=== PATIENT | female | born 1955 | race African-American/Black ===

== ENCOUNTER 2019-03-10 16:26 | Inpatient (IN) | payer OTHER, MEDICAID ==
[~2019-03-10] VITALS: Ht 177.8 cm; Wt 95.3 kg
--- NOTE | 2019-03-10 16:57 | NUR ---
[facility] From [facility] Abdominal Pain x2wks - cramps worse today." BS300. PAIN IS 10/10 AND SHARP/STABBING. DENIES CHANGES IN BOWEL/BLADDER HABITS. ALSO C/O PAIN IN LEFT GREAT TOE R/T DIABETIC WOUND, WHICH IS DRY AND CRUSTED. AOX4, AMBULATORY WITH CANE, VSS, RR EVEN AND UNLABORED ON RA. ON MONITOR, MADE COMFORTABLE, AND READY FOR EVAL.
--- NOTE | 2019-03-10 17:35 | NUR ---
URINE SENT TO STAT LAB
[2019-03-10] MEDS ORDERED: ONDANSETRON HCL/PF 4 MG/2 ML VIAL IVP ONE (18:00)
[2019-03-10] MEDS ORDERED: IV NS 0.9% 1,000 ML BAG IV ONE (18:00)
[2019-03-10] MEDS ORDERED: ONDANSETRON HCL/PF 4 MG/2 ML VIAL ONE (18:03)
[2019-03-10 18:12] LABS: BASOPHILS % (AUTO) 0.3 % (0.0-2.0); EOSINOPHILS % (AUTO) 0.8 % (0.0-6.0); HEMATOCRIT 34 % (33-45); HEMOGLOBIN 11.4 g/dL (11.5-14.8); LYMPHOCYTES # (AUTO) 2.8 /CMM (0.8-4.8); LYMPHOCYTES % (AUTO) 37.5 % (20.0-44.0); MEAN CORPUSCULAR HGB CONC 33 g/dl (31.0-36.0); MEAN CORPUSCULAR VOLUME 85 fL (82-100); MONOCYTES # (AUTO) 0.5 /CMM (0.1-1.30); MONOCYTES % (AUTO) 6.8 % (2.0-12.0); NEUTROPHILS # (AUTO) 4.1 /CMM (1.8-8.9); NEUTROPHILS % (AUTO) 54.6 % (43.0-81.0); PLATELET COUNT (AUTO) 200 /CMM (150-450); WHITE BLOOD COUNT (AUTO) 7.5 K/uL (4.3-11.0)
--- NOTE | 2019-03-10 18:15 | NUR ---
IV ACCESS OBTAINED AND FLUIDS/MEDS GIVEN. WILL MONITOR ACCORDINGLY
[2019-03-10 18:19] LABS: CALCIUM, SERUM 9.8 mg/dL (8.5-10.1); CARBON DIOXIDE 24 mmol/L (21-32); CHLORIDE 102 mmol/L (98-107); CREATININE 1.2 mg/dL (0.6-1.3); GLUCOSE 314 mg/dL (74-106); SODIUM SERUM 137 mmol/L (136-145); UREA NITROGEN, BLOOD 18 mg/dL (7-18)
[2019-03-10 18:25] LABS: ALANINE AMINOTRANSFERASE 18 U/L (12-78); ALBUMIN 3.9 g/dL (3.4-5.0); ALKALINE PHOSPHATASE 100 U/L (46-116); ASPARTATE AMINOTRANSFERASE 10 U/L (15-37); BILIRUBIN,TOTAL 0.2 mg/dL (0.2-1.0); LIPASE 99 U/L (73-393); TOTAL PROTEIN, SERUM 7.8 g/dL (6.4-8.2)
[2019-03-10] MEDS ORDERED: KETOROLAC TROMETHAMINE INJ 30 MG/ML VIAL IV ONE (19:00)
[2019-03-10] MEDS ORDERED: KETOROLAC TROMETHAMINE INJ 60 MG/2 ML VIAL IM ONE (19:17)
--- NOTE | 2019-03-10 19:20 | NUR ---
ASSISTED PT TO RESTROOM. STATES FEELING BETTER, DENIES N/V. PAIN LEVEL DOWN TO 7/10
[2019-03-10 19:41] LABS: APPEARANCE,URINE CLEAR (CLEAR); BILIRUBIN,URINE NEGATIVE (NEGATIVE); BLOOD, URINE NEGATIVE Ery/uL (NEGATIVE); COLOR,URINE YELLOW (YELLOW); KETONES,URINE NEGATIVE (NEGATIVE); LEUKOCYTE ESTERASE ,URINE NEGATIVE (NEGATIVE); NITRITE, URINE NEGATIVE (NEGATIVE); PROTEIN,URINE NEGATIVE (NEGATIVE); UGLUCOSE 3+ mg/dL (NEGATIVE); UROBILINOGEN,URINE 0.2 EU/dL (0.2)
[2019-03-10 20:04] LABS: BACTERIA,URINE Rare /HPF (None Seen); RBC,URINE NONE SEEN /HPF (0-2); SQUAMOUS EPITHELIAL CELL,UR Few /HPF (None Seen); WBC,URINE 0-2 /HPF (0-3)
--- NOTE | 2019-03-10 20:26 | NUR ---
CALLED [facility] PAGED EDWIN ALMONTE
[2019-03-10] MEDS ORDERED: PIPERACILLIN /TAZOBACTAM 3.375 G in IV D5W 50 ML IV ONE (20:30)
[2019-03-10] MEDS ORDERED: PIPERACILLIN /TAZOBACTAM 3.375 G VIAL IV ONE (20:45)
--- NOTE | 2019-03-10 21:21 | NUR ---
REPORT GIVEN TO SUNG SEN FOR 206- MS AND WALKER
[2019-03-10] MEDS ORDERED: MAGNESIUM HYDROXIDE 30 ML UDC PO PRN (21:30)
[2019-03-10] MEDS ORDERED: ONDANSETRON HCL/PF 4 MG/2 ML VIAL IVP PRN (21:30)
[2019-03-10] MEDS ORDERED: ACETAMINOPHEN 325 MG TABLET PO PRN (21:30)
[2019-03-10] MEDS ORDERED: Z GUARD REMEDY 2 OZ OINT TP PRN (21:30)
[2019-03-10] MEDS ORDERED: DEXTROSE 50%-WATER 50 ML DISP.SYRIN IV PRN (21:30)
--- NOTE | 2019-03-10 21:32 | NUR ---
ASSISTED PT TO RESTROOM
[2019-03-10 22:00] VITALS: BP 145/75
--- NOTE | 2019-03-10 22:00 | NUR ---
NS/RN NOTES RECEIVED NEW ADMITTED PATIENT IS A 63 YO AFRO [employer] AND [employer] IS[employer]ER WITH DX OF FOOT INFECTION. ALERT, ORIENTED X3, ABLE TO VERBALIZE NEEDS, ABLE TO AMBULATE WITH CANE BUT WEAK AND WITH PAIN. SKIN CHECK AND WITH LEFT TOE WOUND AND RIGHT TOE S/P AMPUTATION LAST REPORTED BY PATIENT WITH HTN, DM , PATIENT VITAL SIGNS SBP ABOVE 180 TO FOLLOW UP WITH MD, HOME MEDICATIONS RECEIVED AND TO ENTER FOR MEDICATION RECON, PATIENT REPORTED THE NEED FOR TRANSITION CARE AND REQUIRING MERRY [employer]OUND ATTENDANT CONSULTATION FOR HOUSING/ BELONGINGS CHECK, WOUND ORIENTATION, WILL MONITOR.
--- NOTE | 2019-03-10 22:02 | NUR ---
[facility]
[2019-03-10] MEDS: BLOOD SUGAR DIAGNOSTIC 1 EACH STRIP IN SCH (22:42)
--- NOTE | 2019-03-10 22:46 | NUR ---
BS CHECK AT 241 AFTER EATING SNACK.
[2019-03-10] MEDS: HYDROCODONE/APAP 5/325MG 1 EACH TABLET PO PRN (22:54)
--- NOTE | 2019-03-10 22:57 | NUR ---
PAIN REPORTED NORCO 5-325 MG PO TAB GIVEN FOR PAIN ON LEFT TOE, TO CALL MD FOR PAIN SEVERE AND MONITOR.
--- NOTE | 2019-03-10 23:23 | NUR ---
HOME MEDICATION REPORTED AND ENTERED FOR MD TO RECONCILE. ONE MEDICATION FOR PAIN WAS NOT ENTERED PATIENT UNABLE TO STATE NAME AND TO CLARIFY .
[2019-03-10] MEDS ORDERED: TEMAZEPAM 15 MG CAPSULE PO PRN (23:30)
[2019-03-10] MEDS ORDERED: PIPERACILLIN /TAZOBACTAM 3.375 G in IV NS 0.9% 50 ML IV ONE (23:59)
[2019-03-11] MEDS: ZOLPIDEM TARTRATE 5 MG TABLET PO PRN ×2 (00:03→22:20)
[2019-03-11] MEDS: INSULIN REGULAR, HUMAN 100 UNIT/ML 3 ML VIAL SQ PRN ×5 (00:04→21:41)
[2019-03-11 01:49] VITALS: BP 145/75
--- NOTE | 2019-03-11 01:56 | NUR ---
MS/RN NOTES MD PINEDA MADE ROUNDS, MEDICATION REPORTED
[2019-03-11] MEDS: HYDROCODONE/APAP 5/325MG 1 EACH TABLET PO PRN ×3 (02:57→20:56)
--- NOTE | 2019-03-11 02:58 | NUR ---
MS/RN NOTES PATIENT AWOKEN FROM SLEEP REPORTED PAIN IN STOMACH, FEET AND BACK 10/10, NORCO 5-325 MG PO REQUESTED FOR RELIEF.
[2019-03-11] MEDS ORDERED: ZOSYN IVPB 3.375 G in IV D5W 50ml IV ONE (03:00)
--- NOTE | 2019-03-11 03:00 | NUR ---
PHARMACY WAS CONTACTED REGARDING IV ZOSYN TO ADMINISTER 0300. CLARIFIED TO ADMINISTER AND DISCONTINUE DUPLICATE ORDER FOR 01/08 THAT WAS ADMINISTERED AT THE ER.
[2019-03-11] MEDS ORDERED: PIPERACILLIN /TAZOBACTAM 3.375 G VIAL IV ONE (03:06)
[2019-03-11] MEDS: BLOOD SUGAR DIAGNOSTIC 1 EACH STRIP IN SCH ×4 (06:10→21:56)
[2019-03-11 06:26] LABS: BASOPHILS % (AUTO) 0.3 % (0.0-2.0); EOSINOPHILS % (AUTO) 2.6 % (0.0-6.0); HEMATOCRIT 33 % (33-45); LYMPHOCYTES # (AUTO) 2.8 /CMM (0.8-4.8); LYMPHOCYTES % (AUTO) 45.9 % (20.0-44.0); MEAN CORPUSCULAR HGB CONC 33 g/dl (31.0-36.0); MEAN CORPUSCULAR VOLUME 86 fL (82-100); MONOCYTES # (AUTO) 0.5 /CMM (0.1-1.30); MONOCYTES % (AUTO) 8.5 % (2.0-12.0); NEUTROPHILS # (AUTO) 2.6 /CMM (1.8-8.9); NEUTROPHILS % (AUTO) 42.7 % (43.0-81.0); PLATELET COUNT (AUTO) 183 /CMM (150-450); RED BLOOD CELL COUNT(AUTO) 3.85 MIL/uL (4.0-5.2)
[2019-03-11 06:43] LABS: CALCIUM, SERUM 9.1 mg/dL (8.5-10.1); MAGNESIUM 1.7 mg/dL (1.8-2.4); PHOSPHORUS 4.6 mg/dL (2.5-4.9)
--- NOTE | 2019-03-11 07:16 | NUR ---
206-1 MS/RN NOTES PATIENT IN BED, ABLE TO SLEEP DURING THE NIGHT WITH AMBIEN GIVEN, RESPIRATIONS EVEN AND UNLABORED,RESPIRATIONS EVEN AND UNLABORED, ON PAIN MANAGEMENT MONITOIRNG,BED LOCKED CALL LIGHTS WITHIN REACH. WILL MONITOR.
[2019-03-11] MEDS: glipiZIDE 10 MG TABLET PO SCH ×2 (07:22→16:50)
--- NOTE | 2019-03-11 07:33 | NUR ---
MS RN OPENING NOTES RECEIVED PATIENT AWAKE IN BED IN NO ACUTE SIGNS OF DISTRESS. HOB ELEVATED. A/O X4. ABLE TO MAKE NEEDS KNOWN, DENIES PAIN OR ANY DISCOMFORTS AT THIS TIME. ON ROOM AIR, RESPIRATIONS EVEN AND UNLABORED. IV ACCESS ON TO RAC G#20 G INTACT AND PATENT, NO S/S OF INFILTRATIONS NOTED. SAFETY MEASURES IN PLACE. BED IN LOW LOCKED POSITION WITH SR UP X2. WILL CONTINUE TO MONITOR ACCORDINGLY.
[2019-03-11 08:00] VITALS: BP 111/60
[2019-03-11] MEDS ORDERED: ACET-868 PO (08:15)
[2019-03-11] MEDS ORDERED: LISI-603 PO (08:15)
[2019-03-11] MEDS ORDERED: RISP2TAB23 PO (08:15)
[2019-03-11] MEDS ORDERED: TEMA15CA PO (08:15)
[2019-03-11] MEDS ORDERED: PARO10TA4 PO (08:15)
[2019-03-11] MEDS ORDERED: MIRT45TA83 PO (08:15)
[2019-03-11] MEDS ORDERED: CYAN100096 PO (08:15)
[2019-03-11] MEDS ORDERED: GLIP5TAB13 PO (08:15)
[2019-03-11] MEDS ORDERED: INSU100V7 SQ (08:15)
[2019-03-11] MEDS: CYANOCOBALAMIN 500 MCG TABLET PO SCH (08:38)
[2019-03-11] MEDS: PAROXETINE HCL 10 MG TABLET PO SCH (08:38)
[2019-03-11] MEDS: LISINOPRIL (20MG) 20 MG TABLET PO SCH (08:39)
[2019-03-11] MEDS: risperiDONE 1 MG TABLET PO SCH ×2 (08:39→16:49)
[2019-03-11] MEDS: METOPROLOL TARTRATE 25 MG TABLET PO SCH ×2 (08:40→20:22)
[2019-03-11] MEDS: ENOXAPARIN SODIUM 40 MG/0.4 ML DISP.SYRIN SQ SCH (08:41)
[2019-03-11] MEDS ORDERED: CEPHALEXIN MONOHYDRATE 500 MG CAPSULE PO SCH (09:00)
[2019-03-11] MEDS ORDERED: Magnesium 1GM/D5W 100ML PREMIX 100 ML IV SCH (09:30)
[2019-03-11] MEDS: PIPERACILLIN /TAZOBACTAM 3.375 G in IV D5W 100 ML IV SCH ×2 (09:30→16:49)
--- NOTE | 2019-03-11 09:49 | NUR ---
WOUND CARE CONSULT: PT PRESENTS WITH DRY WOUNDS ON FEET, PRESENT ON ADMISSION. DR TOBIN IN WITH PT. DEFER TO DPM FOR WOUND TREATMENT PLAN. PT IS CONTINENT AND STATES IS AMBULATORY BUT UNSTEADY. P.T. TO SEE PT. WILL SEE PRN. CURRENT LORA SCORE IS 20.
--- NOTE | 2019-03-11 10:23 | NUR ---
RN NOTES PATIENT SEEN AND EVALUATED BY DR. HUNTER WITH ORDER TO OBTAIN CONSENT FOR LEFT FOOT WOUND DEBRIDEMENT. EXPLAINED PROCEDURE TO PATIENT AND VERBALIZE UNDERSTANDING. CONSENT SIGNED. DR. HUNTER DID WOUND DEBRIDEMENT, PHOTO TAKEN S/P DEBRIDEMENT, WOUND SPECIMEN COLLECTED FOR CULTURE, WEIGHT BEARING STATUS ORDERED, PT FOR MRI OF LEFT FOOT WITHOUT CONTRAST. WILL CONTINUE TO MONITOR.
--- NOTE | 2019-03-11 12:00 | NUR ---
RN NOTES PATIENT NOTED WITH LOW LEVEL MAGNESIUM OF 1.7, REPLACED WITH MAGNESIUM 1 MG/100ML D5 WATER X1 DOSE OMARI WELL. WILL CONTINUE TO MONITOR.
--- NOTE | 2019-03-11 13:16 | NUR ---
RN NOTES PATIENT WHEELED TO MRI TRAILER VIA WHEELCHAIR FOR MRI OF LEFT FOOT WITHOUT CONTRAST.
--- NOTE | 2019-03-11 14:14 | NUR ---
RN NOTES PATEINT VERBALIZED THAT SHE FELT A MASS ON RIGHT BREAST, ASSESSED PATIENT AND NOTED HARD PALPABLE MASS TO RIGHT BREAST BUT WITH NO C/O PAIN NOR DISCOMFORT. DR. HOLBROOK MADE AWARE WITH ORDER FOR US OF RIGHT BREAST. WILL CONTINUE TO MONITOR.
[2019-03-11 16:00] VITALS: BP 128/70
--- NOTE | 2019-03-11 17:10 | NUR ---
RN NOTES INFORMED DR HOLBROOK TO VERIFY AND DO MED RECON FOR PT.
--- NOTE | 2019-03-11 18:49 | NUR ---
MS RN CLOSING NOTES PATIENT AWAKE IN BED. ALERT AND ORIENTED X3-4. HOB ELEVATED. USES BEDSIDE COMMODE WITHOUT DIFFICULTY. ABLE TO MAKE NEEDS KNOWN, DENIES PAIN OR ANY DISCOMFORT AT THIS TIME. DRESSING ON LEFT FOOT WITH ZAY BANDAGE C/D/I. ON ROOM AIR, TOLERATING WELL WITH NO SOB NOTED THROUGHOUT THE DAY. IV ACCESS ON RAC G#20 INTACT AND PATENT, IV ABX ZOSYN @ 25ML/HR INFUSING, NO S/S OF INFILTRATIONS NOTED. ALL NEEDS AND CARE ATTENDED WELL. SAFETY MEASURES IN PLACE. BED IN LOW LOCKED POSITION WITH SR UP X2. CALL LIGHT IN REACH. WILL ENDORSE TO PIVOT MAKER NURSE FOR CONTINUITY OF CARE.
--- NOTE | 2019-03-11 19:05 | NUR ---
MS RN OPENING NOTES PATIENT AWAKE IN BED. ALERT AND ORIENTED X3-4. HOB ELEVATED. DENIES PAIN OR ANY DISCOMFORT AT THIS TIME. DRESSING ON LEFT FOOT WITH ZAY BANDAGE C/D/I. ON ROOM AIR, TOLERATING WELL WITH NO SOB NOTED. IV ACCESS ON RAC G#20 INTACT AND PATENT, IV ABX ZOSYN @ 25ML/HR INFUSING. SAFETY MEASURES IN PLACE. BED IN LOW LOCKED POSITION WITH SIDE RAILS UP X2. CALL LIGHT WITHIN REACH. WILL CONTINUE TO MONITOR ACCORDINGLY
[2019-03-11 20:00] VITALS: BP 157/71
--- NOTE | 2019-03-11 20:57 | NUR ---
RN NOTES Patient c/o left foot pain, 01/28 and requested for norco. [place] 5-325 given as ordered.
[2019-03-12] MEDS: PIPERACILLIN /TAZOBACTAM 3.375 G in IV D5W 100 ML IV SCH ×3 (00:45→17:55)
[2019-03-12] MEDS: HYDROCODONE/APAP 5/325MG 1 EACH TABLET PO PRN ×3 (01:00→20:20)
--- NOTE | 2019-03-12 01:01 | NUR ---
RN NOTES Patient c/o left foot pain, 01/28 and requested for norco. [place] 5-325 given as ordered.
[2019-03-12 06:19] LABS: BASOPHILS % (AUTO) 0.3 % (0.0-2.0); EOSINOPHILS % (AUTO) 2.6 % (0.0-6.0); HEMATOCRIT 33 % (33-45); LYMPHOCYTES # (AUTO) 2.9 /CMM (0.8-4.8); LYMPHOCYTES % (AUTO) 47.6 % (20.0-44.0); MEAN CORPUSCULAR HGB CONC 33 g/dl (31.0-36.0); MEAN CORPUSCULAR VOLUME 86 fL (82-100); MONOCYTES # (AUTO) 0.4 /CMM (0.1-1.30); MONOCYTES % (AUTO) 6.2 % (2.0-12.0); NEUTROPHILS # (AUTO) 2.6 /CMM (1.8-8.9); NEUTROPHILS % (AUTO) 43.3 % (43.0-81.0); PLATELET COUNT (AUTO) 172 /CMM (150-450); RED BLOOD CELL COUNT(AUTO) 3.85 MIL/uL (4.0-5.2); WHITE BLOOD COUNT (AUTO) 6.1 K/uL (4.3-11.0)
--- NOTE | 2019-03-12 06:20 | NUR ---
MS RN CLOSING NOTES Patient resting in bed, alert, oriented x 4. Breathing even and unlabored. Not in any distress, on room air. No complaints of pain or discomfort at this time. No acute changes overnight. Safety measures in place; call light within reach, bed in low, locked position. Will endorse WALKER to oncoming RN
[2019-03-12 06:43] LABS: PHOSPHORUS 4.1 mg/dL (2.5-4.9); POTASSIUM 4.4 mmol/L (3.5-5.1)
[2019-03-12] MEDS: INSULIN REGULAR, HUMAN 100 UNIT/ML 3 ML VIAL SQ PRN ×4 (06:43→21:34)
[2019-03-12] MEDS: BLOOD SUGAR DIAGNOSTIC 1 EACH STRIP IN SCH ×4 (06:43→21:31)
[2019-03-12 08:00] VITALS: BP 128/63
--- NOTE | 2019-03-12 08:00 | NUR ---
RN NOTES RECEIVED PATIENT IN THE BED A/O X3. PATIENT STABLE NO ACUTE RESPIRATORY DISTRESS. PATIENT WAS COMPLAINING OF PAIN LEFT LOWER LEG, V/S STABLE, ADMINISTERED SCHEDULED MEDICATION. PATIENT AMBULATORY SELF CARE. IV ACCESS ON LEFT FA INTACT INFUSING ZOSYN 25MG/ML HR INTACT. NEEDS ATTENDED AND ANTICIPATED, CALL LIGHT WITHIN TO REACH, CONTINUED MONITORING.
[2019-03-12] MEDS: CYANOCOBALAMIN 500 MCG TABLET PO SCH (08:50)
[2019-03-12] MEDS: PAROXETINE HCL 10 MG TABLET PO SCH (08:50)
[2019-03-12] MEDS: risperiDONE 1 MG TABLET PO SCH ×2 (08:50→16:29)
[2019-03-12] MEDS: glipiZIDE 10 MG TABLET PO SCH ×2 (08:51→16:29)
[2019-03-12 08:53] VITALS: BP 128/63
[2019-03-12] MEDS: METOPROLOL TARTRATE 25 MG TABLET PO SCH ×2 (08:53→21:28)
--- NOTE | 2019-03-12 08:53 | NUR ---
RN NOTES ADMINISTERED NARCO 5/325 MG PO PRN FOR LEFT LEG PAIN /10 PER PATIENT REQUEST, V/S STABLE. SAFETY PRECAUTION MAINTAINED ALL THE TIME.
[2019-03-12] MEDS: LISINOPRIL (20MG) 20 MG TABLET PO SCH (08:54)
[2019-03-12] MEDS: HYDROGEL DRESSING 90 GM TUBE TP SCH (08:55)
[2019-03-12] MEDS: ENOXAPARIN SODIUM 40 MG/0.4 ML DISP.SYRIN SQ SCH (08:58)
--- NOTE | 2019-03-12 12:00 | NUR ---
RN NOTES BS-224 MG/DL COVERAGE GIVEN, PATIENT STABLE, MEDICATION WERE ADMINISTERED PAIN EFFECTIVE, CONTINUED MONITORING.
[2019-03-12 16:08] VITALS: BP 153/73
--- NOTE | 2019-03-12 17:30 | NUR ---
RN NOTES PATIENT OUT OF UNIT FOR SMOKING . ESCORTED BY EMBLEM MAKER.
--- NOTE | 2019-03-12 18:30 | NUR ---
RN NOTES PATIENT STABLE, BS-143 MG/DL COVERAGE GIVEN, V/S STABLE, PATIENT AMBULATORY, NEEDS ATTENDED AND ANTICIPATED, ADMINISTERED SCHEDULED MEDICATION. ENDORSED ONCOMING NURSE FOLLOW PLAN OF CARE.
--- NOTE | 2019-03-12 19:30 | NUR ---
RECEIVED PATIENT IN BED AWAKE. AO X 3, ABLE TO MAKE NEEDS KNOWN. NO ACUTE DISTRESS NOTED. MONITORED FOR PAIN. IV SITE PATENT, INTACT; ZOSYN INFUSING ORDERED. LEFT FOOT DRESSING INTACT. SAFETY REMINDERS GIVEN. ON LOW BED WITH BILATERAL UPPER SIDE RAILS UP. CALL DEE WITHIN EASY REACH. WILL CONTINUE TO MONITOR.
[2019-03-12 20:00] VITALS: BP 145/72
[2019-03-12] MEDS: ZOLPIDEM TARTRATE 5 MG TABLET PO PRN (21:39)
[2019-03-13] MEDS: PIPERACILLIN /TAZOBACTAM 3.375 G in IV D5W 100 ML IV SCH ×3 (01:06→16:06)
[2019-03-13] MEDS: HYDROCODONE/APAP 5/325MG 1 EACH TABLET PO PRN ×4 (03:30→22:56)
--- NOTE | 2019-03-13 06:00 | NUR ---
PATIENT ASLEEP, EASILY AROUSABLE. RESPIRATIONS EVEN. NO SIGNS OF PAIN NOTED. NO SYMPTOMS OF HYPER/HYPOGLYCEMIA. DUE MEDS GIVEN WITH NO ASE NOTED. NEEDS ATTENDED. SAFETY PRECAUTIONS AND COMFORT MEASURES IN PLACE. WILL GIVE REPORT TO DAY SHIFT FOR CONTINUITY OF CARE.
[2019-03-13] MEDS: BLOOD SUGAR DIAGNOSTIC 1 EACH STRIP IN SCH ×4 (06:48→21:43)
[2019-03-13] MEDS: INSULIN REGULAR, HUMAN 100 UNIT/ML 3 ML VIAL SQ PRN ×3 (06:51→21:45)
[2019-03-13 06:52] LABS: BASOPHILS % (AUTO) 0.3 % (0.0-2.0); EOSINOPHILS % (AUTO) 2.3 % (0.0-6.0); HEMATOCRIT 32 % (33-45); HEMOGLOBIN 11.1 g/dL (11.5-14.8); LYMPHOCYTES # (AUTO) 2.8 /CMM (0.8-4.8); LYMPHOCYTES % (AUTO) 46.3 % (20.0-44.0); MEAN CORPUSCULAR HGB CONC 34 g/dl (31.0-36.0); MEAN CORPUSCULAR VOLUME 85 fL (82-100); MONOCYTES # (AUTO) 0.4 /CMM (0.1-1.30); MONOCYTES % (AUTO) 6.5 % (2.0-12.0); NEUTROPHILS # (AUTO) 2.7 /CMM (1.8-8.9); NEUTROPHILS % (AUTO) 44.6 % (43.0-81.0); PLATELET COUNT (AUTO) 172 /CMM (150-450); RED BLOOD CELL COUNT(AUTO) 3.81 MIL/uL (4.0-5.2); WHITE BLOOD COUNT (AUTO) 6.1 K/uL (4.3-11.0)
[2019-03-13 07:00] LABS: CALCIUM, SERUM 9.1 mg/dL (8.5-10.1); CREATININE 0.9 mg/dL (0.6-1.3); PHOSPHORUS 3.9 mg/dL (2.5-4.9); POTASSIUM 4.3 mmol/L (3.5-5.1)
--- NOTE | 2019-03-13 07:26 | NUR ---
RN OPENING NOTE PT WAS RECEIVED IN BED AT LOWEST AND LOCKED POSITION WITH SIDE RAILS UPX2, A/O X3 BREATHING EVEN AND UNLABORED ON RA, NO CURRENT COMPLAINTS OR SIGN OF ANY PAIN OR DISTRESS, IV IS PATENT AND INTACT, AWAITING DIRECTOR OF LITIGATION FOR PLACEMENT, SAFETY PRECAUTIONS IN PLACE, CALL LIGHT WITHIN REACH, WILL MONITOR ACCORDINGLY
[2019-03-13] MEDS: glipiZIDE 10 MG TABLET PO SCH ×2 (07:36→16:06)
[2019-03-13 08:00] VITALS: BP 145/71
[2019-03-13] MEDS: risperiDONE 1 MG TABLET PO SCH ×2 (08:11→16:06)
[2019-03-13] MEDS: METOPROLOL TARTRATE 25 MG TABLET PO SCH ×2 (08:12→21:43)
[2019-03-13] MEDS: ENOXAPARIN SODIUM 40 MG/0.4 ML DISP.SYRIN SQ SCH (08:12)
[2019-03-13] MEDS: LISINOPRIL (20MG) 20 MG TABLET PO SCH (08:12)
[2019-03-13] MEDS: CYANOCOBALAMIN 500 MCG TABLET PO SCH (08:12)
[2019-03-13] MEDS: PAROXETINE HCL 10 MG TABLET PO SCH (08:12)
[2019-03-13] MEDS: HYDROGEL DRESSING 90 GM TUBE TP SCH (08:14)
[2019-03-13 16:00] VITALS: BP 105/60
--- NOTE | 2019-03-13 18:33 | NUR ---
RN CLOSING NOTE PT IN BED AT LOWEST AND LOCKED POSITION WITH SIDE RAILS UPX2, A/O X3 BREATHING EVEN AND UNLABORED WITH NO CURRENT COMPLAINTS OF ANY PAIN OR DISTRESS, IV IS PATENT AND INTACT, RESTING COMFORTABLY IN BED, SAFETY PRECAUTIONS IN PLACE, CALL LIGHT WITHIN REACH, ALL NEEDS ATTENDED, WILL ENDORSE TO FIELD INTERVIEWER RN FOR WALKER.
[2019-03-13 20:00] VITALS: BP 127/58
[2019-03-13] MEDS: ZOLPIDEM TARTRATE 5 MG TABLET PO PRN (21:43)
[2019-03-14] MEDS: PIPERACILLIN /TAZOBACTAM 3.375 G in IV D5W 100 ML IV SCH ×2 (01:28→09:36)
--- NOTE | 2019-03-14 06:00 | NUR ---
PATIENT ASLEEP, EASILY AROUSABLE. RESPIRATIONS EVEN. NO SIGNS OF PAIN NOTED. NO SYMPTOMS OF HYPER/HYPOGLYCEMIA. DUE MEDS GIVEN WITH NO ASE NOTED. NEEDS ATTENDED. KEPT CLEAN AND DRY. SAFETY PRECAUTIONS AND COMFORT MEASURES IN PLACE. WILL GIVE REPORT TO DAY SHIFT FOR CONTINUITY OF CARE. CONTACT ISOLATION FOR ESBL + ECOLI IN LEFT GREAT TOE WOUND.
[2019-03-14 06:45] LABS: BASOPHILS % (AUTO) 0.3 % (0.0-2.0); EOSINOPHILS % (AUTO) 2.2 % (0.0-6.0); HEMATOCRIT 32 % (33-45); HEMOGLOBIN 10.9 g/dL (11.5-14.8); LYMPHOCYTES # (AUTO) 2.8 /CMM (0.8-4.8); LYMPHOCYTES % (AUTO) 50.3 % (20.0-44.0); MEAN CORPUSCULAR HGB CONC 34 g/dl (31.0-36.0); MEAN CORPUSCULAR VOLUME 85 fL (82-100); MONOCYTES # (AUTO) 0.3 /CMM (0.1-1.30); MONOCYTES % (AUTO) 5.2 % (2.0-12.0); NEUTROPHILS # (AUTO) 2.4 /CMM (1.8-8.9); PLATELET COUNT (AUTO) 181 /CMM (150-450); RED BLOOD CELL COUNT(AUTO) 3.82 MIL/uL (4.0-5.2); WHITE BLOOD COUNT (AUTO) 5.6 K/uL (4.3-11.0)
[2019-03-14] MEDS: BLOOD SUGAR DIAGNOSTIC 1 EACH STRIP IN SCH ×4 (06:46→22:41)
[2019-03-14] MEDS: INSULIN REGULAR, HUMAN 100 UNIT/ML 3 ML VIAL SQ PRN ×4 (06:48→22:48)
[2019-03-14 07:18] LABS: CALCIUM, SERUM 9.3 mg/dL (8.5-10.1); CREATININE 1.1 mg/dL (0.6-1.3); MAGNESIUM 1.9 mg/dL (1.8-2.4); PHOSPHORUS 3.9 mg/dL (2.5-4.9); POTASSIUM 4.5 mmol/L (3.5-5.1)
[2019-03-14 08:00] VITALS: BP 145/61
--- NOTE | 2019-03-14 08:00 | NUR ---
MS RN NOTES PATIENT IN BED RESTING NO SOB OR ACUTE DISTRESS NOTED. PATIENT ALERT, ORIENTED X3. PERIPHERAL IV INTACT PATENT. BED IN LOW LOCKED POSITION . CALL LIGHT WITHIN REACH. WILL CONTINUE TO MONITOR.
[2019-03-14] MEDS: CYANOCOBALAMIN 500 MCG TABLET PO SCH (08:27)
[2019-03-14] MEDS: LISINOPRIL (20MG) 20 MG TABLET PO SCH (08:27)
[2019-03-14] MEDS: METOPROLOL TARTRATE 25 MG TABLET PO SCH ×2 (08:28→22:45)
[2019-03-14] MEDS: glipiZIDE 10 MG TABLET PO SCH ×2 (08:28→16:40)
[2019-03-14] MEDS: PAROXETINE HCL 10 MG TABLET PO SCH (08:28)
[2019-03-14] MEDS: risperiDONE 1 MG TABLET PO SCH ×2 (08:29→16:40)
[2019-03-14] MEDS: HYDROCODONE/APAP 5/325MG 1 EACH TABLET PO PRN ×3 (08:30→22:52)
[2019-03-14] MEDS: HYDROGEL DRESSING 90 GM TUBE TP SCH (08:30)
[2019-03-14] MEDS: ENOXAPARIN SODIUM 40 MG/0.4 ML DISP.SYRIN SQ SCH (08:34)
[2019-03-14] MEDS ORDERED: DOSING PER PHARMACY-AMIKACI IV XX PRN (10:00)
[2019-03-14] MEDS: MEROPENEM 500 MG in IV NS 0.9% 100 ML IV SCH (12:18)
[2019-03-14] MEDS ORDERED: MEROPENEM 500 MG in IV NS 0.9% 50 ML IV SCH (13:00)
--- NOTE | 2019-03-14 15:00 | NUR ---
MS RN NOTES PATIENT SEEN BY DR. MEDLEY DRESSING CHANGED. PATIENT TOLERATED WELL.
[2019-03-14 16:00] VITALS: BP 156/72
--- NOTE | 2019-03-14 19:22 | NUR ---
MS RN NOTES PATIENT IN BED RESTING NO SOB OR ACUTE DISTRESS NOTED. PATIENT ALERT, ORIENTED X3. NO ACUTE CHANGED NOTED DURING SHIFT. PATIENT ON CONTACT ISOLATION DUE TO ESBL OF THE WOUND. ALL DUE MEDICATIONS ADMINISTERED. ALL NEEDS MET. ENDORSED CARE TO PM SHIFT.
--- NOTE | 2019-03-14 19:45 | NUR ---
MS/RN OPENING NOTES PT RECEIVED AWAKE, RESTING COMFORTABLY IN BED. A/OX3. ON ROOM AIR, BREATHING EVEN AND UNLABORED. DENIES SOB. BUT NOTES PAIN TO LEFT WRIST IV SITE. FLUSHED AND INFILTRATED. PAINFUL AND PT WANTS IV REMOVED NOW. REFUSING NEW IV INSERTION AT THIS TIME DESPITE EDUCATION THAT SHE NEEDS TO HAVE HER IV ABX. PT VERBALIZED UNDERSTANDING AND STILL REFUSING AT THIS TIME. BED IN LOW/LOCKED POSITION WITH CALL LIGHT IN REACH. BILAT. UPPER SIDE RAILS IN PLACE. HOB ELEVATED. WILL CONTINUE TO MONITOR
[2019-03-14 19:51] VITALS: BP 116/69
[2019-03-14 20:00] VITALS: BP 116/69
[2019-03-14] MEDS: DOXYCYCLINE HYCLATE (100 MG) 100 MG TABLET PO SCH (22:41)
--- NOTE | 2019-03-14 22:48 | NUR ---
MS RN NOTES: BLOOD SUGAR 174. 3 UNITS OF INSULIN WAS ADMINISTERED. SNACK WAS PROVIDED.
--- NOTE | 2019-03-14 22:52 | NUR ---
MS RN NOTES: PT COMPLAINING OF 10/10 BACK, SHOULDERS, NECK, LEGS PAIN. PT WAS ADMINISTERED NORCO 5 PO. WILL CONTINUE TO MONITOR.
[2019-03-15] MEDS: ZOLPIDEM TARTRATE 5 MG TABLET PO PRN ×2 (00:09→21:27)
[2019-03-15] MEDS: MEROPENEM 500 MG in IV NS 0.9% 100 ML IV SCH ×4 (00:09→20:00)
--- NOTE | 2019-03-15 00:10 | NUR ---
MS/RN NOTES PT FINALLY AGREED TO LET ME INSERT NEW IV. INSERTED TO LAC #22 WITH GOOD BLOOD RETURN AND FLUSHES WELL. ADMINISTERED MERREM 500MG IV LATE DUE TO THIS. NO NEEDS EXPRESSED AT THIS TIME. WILL CONTINUE TO MONITOR
[2019-03-15 06:29] LABS: BASOPHILS % (AUTO) 0.3 % (0.0-2.0); EOSINOPHILS % (AUTO) 1.9 % (0.0-6.0); HEMATOCRIT 31 % (33-45); HEMOGLOBIN 10.5 g/dL (11.5-14.8); LYMPHOCYTES # (AUTO) 2.3 /CMM (0.8-4.8); LYMPHOCYTES % (AUTO) 38.6 % (20.0-44.0); MEAN CORPUSCULAR HGB CONC 34 g/dl (31.0-36.0); MEAN CORPUSCULAR VOLUME 85 fL (82-100); MONOCYTES # (AUTO) 0.4 /CMM (0.1-1.30); MONOCYTES % (AUTO) 6.2 % (2.0-12.0); NEUTROPHILS # (AUTO) 3.1 /CMM (1.8-8.9); PLATELET COUNT (AUTO) 160 /CMM (150-450); RED BLOOD CELL COUNT(AUTO) 3.65 MIL/uL (4.0-5.2); WHITE BLOOD COUNT (AUTO) 5.9 K/uL (4.3-11.0)
[2019-03-15 06:43] LABS: CALCIUM, SERUM 9.1 mg/dL (8.5-10.1); CREATININE 0.9 mg/dL (0.6-1.3); MAGNESIUM 1.8 mg/dL (1.8-2.4); PHOSPHORUS 3.6 mg/dL (2.5-4.9); POTASSIUM 4.2 mmol/L (3.5-5.1)
[2019-03-15] MEDS: BLOOD SUGAR DIAGNOSTIC 1 EACH STRIP IN SCH ×4 (07:00→21:27)
[2019-03-15] MEDS: INSULIN REGULAR, HUMAN 100 UNIT/ML 3 ML VIAL SQ PRN ×4 (07:06→21:31)
--- NOTE | 2019-03-15 07:43 | NUR ---
MS/RN OPENING NOTE PATIENT IN BED IN STABLE CONDITION. A/O X 3. NO SINGS OF ACUTE DISTRESS. NO COMPLAIN OF PAIN OR DISCOMFORT. ALL NEEDS ATTENDED TO. CALL LIGHT WITHIN REACH. WILL CONTINUE TO MONITOR TO ENSURE SAFETY.
--- NOTE | 2019-03-15 07:50 | NUR ---
MS/RN CLOSING NOTES PT ASLEEP, RESPONSIVE TO NAME. A/OX3. REMAINS ON ROOM AIR, BREATHING EVEN AND UNLABORED. DENIES SOB AND PAIN AT THIS TIME. IV TO LAC PATENT AND INTACT CURRENTLY RUNNING IV MERREM. NWB TO LEFT FOOT ENCOURAGED. OKAY TO USE LEFT HEEL. NO SIGNIFICANT CHANGES OVERNIGHT. ALL NEEDS MET. BED IN LOW/LOCKED POSITION WITH CALL LIGHT IN REACH. BILAT. UPPER SIDE RAILS IN PLACE. HOB ELEVATED. ENDORSED TO DAY SHIFT RN WALKER.
[2019-03-15 08:00] VITALS: BP 129/72
[2019-03-15] MEDS: CYANOCOBALAMIN 500 MCG TABLET PO SCH (08:52)
[2019-03-15] MEDS: ENOXAPARIN SODIUM 40 MG/0.4 ML DISP.SYRIN SQ SCH ×2 (08:52→08:57)
[2019-03-15] MEDS: glipiZIDE 10 MG TABLET PO SCH ×2 (08:52→16:32)
[2019-03-15] MEDS: risperiDONE 1 MG TABLET PO SCH ×2 (08:53→16:32)
[2019-03-15] MEDS: DOXYCYCLINE HYCLATE (100 MG) 100 MG TABLET PO SCH ×2 (08:53→20:01)
[2019-03-15] MEDS: METOPROLOL TARTRATE 25 MG TABLET PO SCH ×2 (08:53→20:01)
[2019-03-15] MEDS: PAROXETINE HCL 10 MG TABLET PO SCH (08:53)
[2019-03-15] MEDS: LISINOPRIL (20MG) 20 MG TABLET PO SCH (08:53)
[2019-03-15] MEDS: HYDROGEL DRESSING 90 GM TUBE TP SCH (08:55)
[2019-03-15] MEDS: HYDROCODONE/APAP 5/325MG 1 EACH TABLET PO PRN ×2 (08:59→19:57)
[2019-03-15 16:00] VITALS: BP 145/70
[2019-03-15] MEDS: LACTOBACILLUS RHAMNOSUS GG 1 EACH CAP.SPRINK PO SCH (16:32)
--- NOTE | 2019-03-15 18:26 | NUR ---
MS/RN CLOSING NOTE PATIENT IN BED IN STABLE CONDITION. A/O X 3. NO SIGNS OF ACUTE DISTRESS. NO COMPLAIN OF PAIN OR DISCOMFORT. ALL NEEDS ATTENDED TO. CALL LIGHT WITHIN REACH. WILL ENDORSE TO NEXT SHIFT FOR CONTINUITY OF CARE.
--- NOTE | 2019-03-15 19:40 | NUR ---
MS RN OPENING NOTES: RECEIVED PT ON ROOM AIR AND IS TOLERATING WELL. NO SOB NOTED. NO S/S OF DISTRESS. PT HAS IV ON L AC AND IS PATENT AND INTACT. CURRENTLY H/L. PT DOES NOT WANT WOUND TX PERFORMED AT THIS TIME AND CAN WAIT LATER, PREFERABLY THE MORNING. BED KEPT IN LOW, LOCKED POSITION, AND SIDE RAILS X 2UP. WILL CONTINUE TO MONITOR PT .
--- NOTE | 2019-03-15 19:59 | NUR ---
MS RN NOTES: PT COMPLAINING OF 8/10 LEFT BACK ACHY PAIN. PT WAS ADMINISTERED NORCO 5 PO. WILL CONTINUE TO MONITOR.
[2019-03-15 20:10] VITALS: BP 144/71
--- NOTE | 2019-03-15 21:33 | NUR ---
MS RN NOTES: PT REQUESTING FOR SLEEPING AID. PT WAS ADMINISTERED AMBIEN 5 MG PO. BLOOD SUGAR WAS 128. NO INSULIN WAS ADMINISTERED. PT GIVEN A SNACK REQUESTED. WILL CONTINUE TO MONITOR.
--- NOTE | 2019-03-16 | NUR ---
MS RN CLOSING NOTES: PT IN STABLE CONDITION AND ASLEEP. ENDORSED TO WESLEY ALMARAZ FOR WALKER.
--- NOTE | 2019-03-16 00:15 | NUR ---
MS RN NOTE: RECEIVED REPORT FROM SUNG MEDINA, PATIENT RESTING IN BED, NO ACUTE DISTRESS NOTED. ISOLATION PRECAUTIONS OBSERVED. BED LOCKED AND IN LOWEST POSITION, CALL LIGHT IN REACH. WILL CONTINUE TO MONITOR.
[2019-03-16] MEDS: MEROPENEM 500 MG in IV NS 0.9% 100 ML IV SCH ×2 (04:46→13:26)
--- NOTE | 2019-03-16 06:20 | NUR ---
MS RN NOTE: PATIENT RESTING IN BED, NO ACUTE DISTRESS NOTED. BREATHING EVEN AND UNLABORED, NO SOB NOTED. IV TO LAC IN PLACE. PATIENT BLOOD SUGAR LEVEL 190MG/DL, TO RECEIVE 3 UNITS OF INSULIN PER SLIDING SCALE. NO S/S OF HYPER/HYPOGLYCEMIA NOTED. ISOLATION PRECAUTIONS OBSERVED. BED LOCKED AND IN LOWEST POSITION, CALL LIGHT IN REACH. WILL ENDORSE TO DAY NURSE TO CONTINUE WITH PLAN OF CARE.
[2019-03-16] MEDS: INSULIN REGULAR, HUMAN 100 UNIT/ML 3 ML VIAL SQ PRN ×2 (06:29→12:20)
[2019-03-16] MEDS: BLOOD SUGAR DIAGNOSTIC 1 EACH STRIP IN SCH ×2 (06:31→12:20)
--- NOTE | 2019-03-16 07:24 | NUR ---
RN OPENING NOTE PT WAS RECEIVED IN BED AT LOWEST AND LOCKED POSITION WITH SIDE RAILS UPX2, A/O X3 BREATHING EVEN AND UNLABORED ON RA, NO CURRENT COMPLAINTS OR S/S OF ANY PAIN OR DISTRESS NOTED, IV IS PATENT AND INTACT, POSSIBLE D/C TO SNF TODAY, SAFETY PRECAUTIONS IN PLACE, CALL LIGHT WITHIN REACH, WILL MONITOR ACCORDINGLY
[2019-03-16] MEDS: glipiZIDE 10 MG TABLET PO SCH (07:34)
[2019-03-16] MEDS: HYDROCODONE/APAP 5/325MG 1 EACH TABLET PO PRN (07:35)
[2019-03-16 08:00] VITALS: BP 128/64
[2019-03-16] MEDS: LACTOBACILLUS RHAMNOSUS GG 1 EACH CAP.SPRINK PO SCH (08:27)
[2019-03-16] MEDS: risperiDONE 1 MG TABLET PO SCH (08:27)
[2019-03-16] MEDS: CYANOCOBALAMIN 500 MCG TABLET PO SCH (08:27)
[2019-03-16] MEDS: PAROXETINE HCL 10 MG TABLET PO SCH (08:27)
[2019-03-16] MEDS: DOXYCYCLINE HYCLATE (100 MG) 100 MG TABLET PO SCH (08:27)
[2019-03-16 08:28] VITALS: BP 128/64
[2019-03-16] MEDS: LISINOPRIL (20MG) 20 MG TABLET PO SCH (08:28)
[2019-03-16] MEDS: METOPROLOL TARTRATE 25 MG TABLET PO SCH (08:28)
[2019-03-16] MEDS: ENOXAPARIN SODIUM 40 MG/0.4 ML DISP.SYRIN SQ SCH (08:28)
[2019-03-16] MEDS: HYDROGEL DRESSING 90 GM TUBE TP SCH (08:30)
[2019-03-16] MEDS ORDERED: LACT1CAP72 PO (10:29)
[2019-03-16] MEDS ORDERED: DOXY100T2 PO (10:29)
[2019-03-16] MEDS ORDERED: MERO500V IV (10:29)
--- NOTE | 2019-03-16 13:16 | NUR ---
RN NOTE INFORMED BY CHAZ MELENDEZ THAT PATIENT WILL BE GOING HOME AND WILL RECEIVE IV ABX PROVIDED BY [facility]. FRIEND MIYA WILL COME TO LEGAL BILLING CLERK PATIENT
--- NOTE | 2019-03-16 14:30 | NUR ---
DISCHARGE NOTE PT WAS D/C AT THIS TIME IN MEDICALLY STABLE CONDITION BACK HOME WHERE SHE WILL RECEIVE IV ABX VIA [facility]. IV WAS LEFT IN [place] DUE TO PLAN TO CONTINUE IV ABX. ID BAND WERE REMOVED. ALL EXITCARE, D/C PAPERWORK, AND BELONGING LIST WERE SIGNED, DISCUSSED, AND HANDED TO THE PT. ALL BELONGINGS INCLUDING MEDICATION WERE HANDED TO THE PATIENT. PHOTOS OF WOUNDS WERE TAKEN AND PLACED IN THE CHART. PT REFUSED FOR PHOTO OF IV TO BE TAKEN STATING IT WAS NOT NECESSARY SINCE SHE ALREADY HAD PHOTOS OF HER WOUNDS TAKEN. ALL NEEDS OF HER NEEDS WERE ATTENDED TO. PT WAS TAKEN DOWN BY ME VIA WHEELCHAIR WHERE SHE WAS TAKEN BY MIYA HER FRIEND AND TREE PULLER OF THE ASSISTED LIVING IN HER PRIVATE CAR AT THIS TIME.
== END 2019-03-16 14:30 | disposition home health service (06) | DRG 623 ==
LOC: ER 16:31 → MEDSG2 21:28
PROVIDERS: ADMIT Nurse Practitioner Acute Care; ATTEND Nurse Practitioner Acute Care
PROC: 0JBR0ZZ Excision of Left Foot Subcutaneous Tissue and Fascia, Open Approach (ICD-10-PCS; principal; 2019-03-11)
DX: E11.621 Type 2 diabetes mellitus with foot ulcer (principal); D68.59 Other primary thrombophilia; N39.0 Urinary tract infection, site not specified; Z59.0 Homelessness; L97.529 Non-pressure chronic ulcer of other part of left foot with unspecified severity; I16.0 Hypertensive urgency; I10 Essential (primary) hypertension; E11.65 Type 2 diabetes mellitus with hyperglycemia; E66.01 Morbid (severe) obesity due to excess calories; Z68.30 Body mass index [BMI] 30.0-30.9, adult; F17.210 Nicotine dependence, cigarettes, uncomplicated; B96.20 Unspecified Escherichia coli [E. coli] as the cause of diseases classified elsewhere; Z16.12 Extended spectrum beta lactamase (ESBL) resistance; F20.9 Schizophrenia, unspecified; Z91.19 Patient's noncompliance with other medical treatment and regimen; B95.5 Unspecified streptococcus as the cause of diseases classified elsewhere; E11.42 Type 2 diabetes mellitus with diabetic polyneuropathy
CPT/HCPCS: 36415; 71045-TC; 73630-TC; 73718-TC; 76642-TC; 80048-TC; 80061-TC; 80076-TC; 81000-TC; 82962-TC; 83690-TC; 83735-TC; 84100-TC; 84484-TC; 85025-TC; 85652-TC; 87070-TC; 87081-TC; 87186-TC; 97116-TC; 97530-TC; A4216; A6248; A6402; A6403; G0378; J1650; J1815; J1885; J2185; J2405; J2543; J3475; J7030; J7050; J7060